=== PATIENT | female | born 1945 | race Caucasian/White ===

== ENCOUNTER → 2019-02-08 | Outpatient (CLI) | payer OTHER | LOC: M.ULTRA 08:47 | DX: I12.9 Hypertensive chronic kidney disease with stage 1 through stage 4 chronic kidney disease, or unspecified chronic kidney disease (principal); N18.3 Chronic kidney disease, stage 3 (moderate) ==

== ENCOUNTER 2019-05-21 13:44 | Inpatient (IN) | payer OTHER ==
[~2019-05-21] VITALS: Ht 162.6 cm; Wt 76.7 kg
[2019-05-21 13:46] VITALS: BP 131/71
[2019-05-21] MEDS ORDERED: CYMBALTA20 MG PO (13:51)
[2019-05-21] MEDS ORDERED: B COMPLEX1 EACH PO (13:51)
[2019-05-21] MEDS ORDERED: SYNTHROID50 MCG PO (13:51)
[2019-05-21] MEDS ORDERED: BLOOD PRESSURE MED (13:51)
[2019-05-21] MEDS ORDERED: IRON159 MG PO (13:52)
[2019-05-21 14:52] LABS: ABSOLUTE BASOPHILS 0.1 thou/uL (0.0-0.2); ABSOLUTE LYMPHOCYTES 0.8 thou/uL (0.8-5.3); ABSOLUTE NEUTROPHILS 11.5 thou/uL (1.6-8.1); BASOPHILS 0.7 %; HEMATOCRIT 36.3 % (37.0-47.0); LYMPHOCYTES 5.8 %; MCH 28.5 pg (26.0-34.0); MCHC 33.2 g/dL (28.0-37.0); MCV 85.8 fL (80.0-100.0); MONOCYTES 14.1 %; MPV 7.6 fl. (7.2-11.1); NUCLEATED RBCS 0 /100WBC; PLATELET COUNT* 237 thou/uL (150-400); POLYS 79.4 %; RBC 4.23 mil/uL (4.20-5.00); RDW-CV 14.3 % (10.5-14.5); WBC 14.5 thou/uL (4.0-11.0)
[2019-05-21 15:05] LABS: CALCIUM 8.8 mg/dL (8.5-10.1); CREATININE 1.4 mg/dL (0.6-1.3); POTASSIUM 3.9 mmol/L (3.5-5.1)
[2019-05-21 15:10] LABS: ALBUMIN 3.2 g/dL (3.4-5.0); TOTAL BILIRUBIN 0.9 mg/dL (<0.1-1.0); TOTAL PROTEIN 7.5 g/dL (6.4-8.2)
[2019-05-21 16:20] LABS: ESR (SEDRATE) 43 mm/hr (0-30)
[2019-05-21] MEDS ORDERED: ATACAND4 MG PO (19:44)
[2019-05-21 20:00] LABS: BF RBC 6359 /mm3; TOTAL CELL COUNT 28024 /mm3
[2019-05-21 20:03] VITALS: BP 127/56
[2019-05-21 20:04] LABS: CLARITY TURBID; TOTAL VOLUME 21 ml
[2019-05-21 20:06] VITALS: BP 128/58
--- NOTE | 2019-05-21 20:06 | NUR ---
PATIENT TRANSFERRED TO ROOM 110, REPORT GIVEN TO SADIE PUGH.
[2019-05-21 20:26] LABS: BF LYMPHOCYTES 4 %; BF MONOCYTES 11 %; BF POLYS 85 %; SOURCE SYNOVIAL
[2019-05-22 04:18] LABS: ABSOLUTE BASOPHILS 0.1 thou/uL (0.0-0.2); ABSOLUTE EOSINOPHILS 0.1 thou/uL (0.0-0.7); ABSOLUTE LYMPHOCYTES 1.5 thou/uL (0.8-5.3); ABSOLUTE MONOCYTES 1.9 thou/uL (0.0-1.2); ABSOLUTE NEUTROPHILS 9.9 thou/uL (1.6-8.1); BASOPHILS 0.4 %; EOSINOPHILS 0.9 %; HEMATOCRIT 36.7 % (37.0-47.0); HEMOGLOBIN 12.3 gm/dL (12.0-15.0); MCH 28.9 pg (26.0-34.0); MCHC 33.4 g/dL (28.0-37.0); MCV 86.4 fL (80.0-100.0); MONOCYTES 13.9 %; MPV 7.7 fl. (7.2-11.1); NUCLEATED RBCS 0 /100WBC; PLATELET COUNT* 243 thou/uL (150-400); POLYS 73.8 %; RBC 4.24 mil/uL (4.20-5.00); RDW-CV 14.1 % (10.5-14.5); WBC 13.5 thou/uL (4.0-11.0)
[2019-05-22 04:36] LABS: ALBUMIN 2.9 g/dL (3.4-5.0); CALCIUM 8.7 mg/dL (8.5-10.1); CREATININE 1.4 mg/dL (0.6-1.3); POTASSIUM 3.3 mmol/L (3.5-5.1); TOTAL BILIRUBIN 0.7 mg/dL (<0.1-1.0); TOTAL PROTEIN 7.4 g/dL (6.4-8.2)
--- NOTE | 2019-05-22 05:04 | NUR ---
ASSUMED CARE OF PT 05/21/19 AT APPROX 1955, PT A&OX4, VSS, PT HAS NOT REQUESTED PAIN MED THIS SHIFT, PT NPO AFTER MIDNIGHT - MAY HAVE SURGERY 05/22, HOURLY ROUNDINGS AND ASSESSMENTS COMPLETED. WILL CONTINUE TO MONITOR.
[2019-05-22 07:30] VITALS: BP 138/71
[2019-05-22 11:30] VITALS: BP 108/54
--- NOTE | 2019-05-22 12:06 | NUR ---
1130 RECEIVED PATIENT PER WHEELCHAIR FROM JOINT/SPINE UNIT. SEE ASSESSMENT. PATIENT ORIENTED TO ROOM AND TELE MONITOR PLACED.
[2019-05-22 12:51] LABS: CALCIUM 8.5 mg/dL (8.5-10.1); CREATININE 1.4 mg/dL (0.6-1.3); MAGNESIUM 1.8 mg/dL (1.8-2.4); POTASSIUM 3.9 mmol/L (3.5-5.1)
--- NOTE | 2019-05-22 15:00 | NUR ---
SEEN BY DR BARILLAS. LEFT LALITHA WRAP OFF OF LEFT KNEE.LIDOCAINE PATCH UNDER LEFT KNEE.
[2019-05-22 16:00] VITALS: BP 122/59
--- NOTE | 2019-05-22 17:09 | NUR ---
PATIENT MAKING SOME PROGRESS TOWARDS GOALS. TRANSFERRED TO TELEMETRY THIS MORNING FOR CLOSER MONITORING SECONDARY TO POSITIVE BLOOD CULTURES. TMAX 99.2. SEEN BY CONSULTS. PAIN CONTROLLED BY SCHEDULED MEDICATION. PLAN IS FOR SURGERY ON LEFT KNEE TOMORROW. FAMILY HAS VISITED.
[2019-05-22 20:00] VITALS: BP 138/61
[2019-05-23] VITALS (10 sets, daily range): BP systolic 122–140; BP diastolic 58–64
--- NOTE | 2019-05-23 05:00 | NUR ---
ASSUMED PT CARE AT 1900. PT AAOX4. 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 HOURLY ROUNDING COMPLETED. PAIN MEDICATION ADMINISTERED THIS SHIFT FOR LEFT KNEE PAIN. SEE EMAR FOR DOCUMENTATION. FEBRILE THIS SHIFT X1. PRN ACETAMINOPHEN ADMINISTERED AND EFFECTIVE. CALL LIGHT WITHIN REACH.
[2019-05-23 05:08] LABS: HEMATOCRIT 30.8 % (37.0-47.0); HEMOGLOBIN 10.5 gm/dL (12.0-15.0); MCH 29.4 pg (26.0-34.0); MCHC 34.1 g/dL (28.0-37.0); MPV 7.4 fl. (7.2-11.1); RBC 3.58 mil/uL (4.20-5.00); RDW-CV 13.9 % (10.5-14.5); WBC 11.9 thou/uL (4.0-11.0)
[2019-05-23 05:18] LABS: CALCIUM 8.1 mg/dL (8.5-10.1); CREATININE 1.2 mg/dL (0.6-1.3); MAGNESIUM 1.8 mg/dL (1.8-2.4); POTASSIUM 3.6 mmol/L (3.5-5.1)
--- NOTE | 2019-05-23 07:49 | NUR ---
Pt resting in bed, appears alert o x 4, denies chest pain, SOB. C/P L knee pain rates 5 on scale of 1-10. NPO for L knee surgery. Orth rounded earlier, anesthesia her to see. States can have water po, up until 10am. Plan on surgery at noon. Spouse is at bedside, NSR on monitor
--- NOTE | 2019-05-23 10:57 | NUR ---
PT LEAVING FLOOR FOR L KNEE SURGERY
--- NOTE | 2019-05-23 11:34 | NUR ---
Pt is A&O. Resides at home with her , normally active and independent. Pt has a walker, crutches and cane at home, but does not currently use any of them. Hx of HH. No hx of skilled. Pt to have surgery today. Goal is home at ms, may need HH and consult received regarding possible need for IVABX. Following.
[2019-05-23 12:06] LABS: BODY FLUID PROTEIN 4.3 g/dL (())
--- NOTE | 2019-05-23 13:57 | 2DMMODE ---
[place] [address] 2 D/M-MODE ECHOCARDIOGRAM Name: YOVANNY ECHAVARRIA Room: [address] IN .R.#: [id number] Admission: 05/21/19 Attend Phys: Kashif Allen, Discharge: Date of : 49 Date of Service: 05/23/19 1356 Report #: [id number] THIS REPORT FOR: //name// APPROVED REPORT Study performed: 05/23/2019 09:39:38 EXAM: Comprehensive 2D, Doppler, and color-flow Echocardiogram Patient Location: Bedside BSA: 1.79 HR: 93 bpm BP: 122/58 mmHg Other Information Study Quality: Good Indications Pre-Op Positive bld cx 2D Dimensions IVSd: 14.42 (7-11mm) LVOT Diam: 17.33 (18-24mm) LVDd: 40.14 mm PWd: 10.96 (7-11mm) Ascending Ao: 35.09 (22-36mm) LVDs: 29.75 (25-40mm) Aortic Root: 22.74 mm Volumes Left Atrial Volume (Systole) LA ESV Index: 19.70 mL/m2 Aortic Valve AoV Peak Ervin.: 3.06 m/s AO Peak Gr.: 37.48 mmHg LVOT Max P.46 mmHg AO Mean Gr.: 19.81 mmHg LVOT Mean P.11 mmHg LVOT Max V: 1.37 m/s AO V2 VTI: 51.94 cm LVOT Mean V: 0.94 m/s JESIKA (VTI): 1.23 cm2 LVOT V1 VTI: 27.17 cm AI Morrow: 2.52 m/s2 AI PHT: 426.24 ms Mitral Valve E/A Ratio: 0.80 MV Decel. Time: 298.36 [place] [address] 2 D/M-MODE ECHOCARDIOGRAM Name: YOVANNY ECHAVARRIA Room: [address] IN ..#: [id number] Admission: 05/21/19 Attend Phys: Kashif Allen, Discharge: Date of : 49 Date of Service: 05/23/19 1356 Report #: [id number] MV E Max Ervin.: 1.10 m/s MV PHT: 86.52 ms MVA (PHT): 2.54 cm2 TDI E/Lateral E': 7.86 E/Medial E': 8.46 Medial E' Ervin.: 0.13 m/s Lateral E' Ervin.: 0.14 m/s Pulmonary Valve PV Peak Ervin.: 1.35 m/s PV Peak Gr.: 7.28 mmHg Tricuspid Valve RAP Estimate: 15.00 mmHg TR Peak Gr.: 48.88 mmHg RVSP: 63.88 mmHg PA Pressure: 63.88 mmHg Left Ventricle The left ventricle is normal size. There is normal LV segmental wall motion. There is normal left ventricular wall thickness. Left ventricular systolic function is normal. The left ventricular ejection fraction is within the normal range. LVEF is 60-65%. Grade I - abnormal relaxation pattern. Right Ventricle The right ventricle is normal size. The right ventricular systolic function is normal. Atria The left atrium size is normal. The right atrium size is normal. Aortic Valve The Aortic valve is sclerotic. Trace aortic regurgitation. Mild aortic stenosis. Mitral Valve The mitral valve is normal in structure. There is no mitral valve regurgitation noted. No evidence of mitral valve stenosis. Tricuspid Valve The tricuspid valve is normal in structure. There is mild tricuspid valve regurgitation noted. estimated pa pressure 55 mm Hg Pulmonic Valve The pulmonary valve is normal in structure. [place] [address] 2 D/M-MODE ECHOCARDIOGRAM Name: JERICHOYOVANNY WOOD Room: [address] IN [facility]#: [id number] Admission: 05/21/19 Attend Phys: Kashif Allen, Discharge: Date of : 49 Date of Service: 05/23/19 1356 Report #: [id number] valvular regurgitation. Great Vessels The aortic root is normal in size. The IVC is dilated. Pericardium There is no pericardial effusion. <Conclusion> LVEF is 60-65%. Mild aortic stenosis. There is mild tricuspid valve regurgitation noted. estimated pa pressure 55 mm Hg <ELECTRONICALLY SIGNED> By: Travis Hunter MD, FACC 05/23/19 1356 1356 1356 Travis Hunter MD, FACC /INF
--- NOTE | 2019-05-23 14:14 | EKG ---
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
--- NOTE | 2019-05-23 15:11 | NUR ---
Per nursing electronics supervisor, plans on transferring to ICU, Report lee to ICU
[2019-05-23 15:23] LABS: BE -5.3 mmol/L (-2 to +3)
[2019-05-23 15:28] LABS: PCO2 53.7 mmHg (35.0-45.0); PO2 180.3 mmHg (75.0-100.0); pH 7.236 (7.340-7.450)
--- NOTE | 2019-05-23 16:15 | EKG ---
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 Program Director: : 1945 Requested By: Musa Pacheco Order Number: [id number] Reyes MD: Travis Hunter Measurements Intervals [place] Rate: 144 P: 191 [place]: 88 QRS: 54 QRSD: 90 T: 22 QT: 362 QTc: 561 Interpretive Statements Sinus or ectopic atrial tachycardia Prolonged QT interval Compared to ECG 05/23/2019 09:37:44 Prolonged QT interval now present Sinus rhythm no longer present Electronically Signed On 05-23-2019 16:14:45 SCIENCE EDUCATION PROFESSOR by Travis Hunter [email or web address] <ELECTRONICALLY SIGNED> By: Travis Hunter MD, [facility] 05/23/19 1614 1450 1450 Travis Hunter MD, [facility] /EPI
--- NOTE | 2019-05-23 17:30 | NUR ---
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
[2019-05-23 17:48] LABS: HEMATOCRIT 26.2 % (37.0-47.0); HEMOGLOBIN 8.8 gm/dL (12.0-15.0); MCH 29.4 pg (26.0-34.0); MCHC 33.6 g/dL (28.0-37.0); MCV 87.5 fL (80.0-100.0); RBC 2.99 mil/uL (4.20-5.00); RDW-CV 13.7 % (10.5-14.5); WBC 14.2 thou/uL (4.0-11.0)
[2019-05-23 17:56] LABS: CREATININE 1.2 mg/dL (0.6-1.3); MAGNESIUM 1.7 mg/dL (1.8-2.4); POTASSIUM 4.6 mmol/L (3.5-5.1)
[2019-05-23 18:04] LABS: BE -5.9 mmol/L (-2 to +3); PCO2 45.4 mmHg (35.0-45.0)
[2019-05-23 18:08] LABS: PO2 134.9 mmHg (75.0-100.0); pH 7.276 (7.340-7.450)
[2019-05-24] VITALS (9 sets, daily range): BP systolic 103–130; BP diastolic 44–76
[2019-05-24 01:01] LABS: HEMATOCRIT 22.4 % (37.0-47.0); HEMOGLOBIN 7.7 gm/dL (12.0-15.0); MCH 29.7 pg (26.0-34.0); MCHC 34.4 g/dL (28.0-37.0); MCV 86.6 fL (80.0-100.0); MPV 7.6 fl. (7.2-11.1); RBC 2.58 mil/uL (4.20-5.00); WBC 10.9 thou/uL (4.0-11.0)
[2019-05-24 01:05] LABS: BE -2.4 mmol/L (-2 to +3); PCO2 VENOUS 58.5 mmHg (41.0-51.0); PO2 VENOUS 42.3 mmHg (35.0-45.0)
[2019-05-24 01:28] LABS: ALBUMIN 1.8 g/dL (3.4-5.0); CALCIUM 7.8 mg/dL (8.5-10.1); CREATININE 1.3 mg/dL (0.6-1.3); MAGNESIUM 1.8 mg/dL (1.8-2.4); POTASSIUM 4.8 mmol/L (3.5-5.1); TOTAL BILIRUBIN 0.5 mg/dL (<0.1-1.0); TOTAL PROTEIN 5.5 g/dL (6.4-8.2)
[2019-05-24 04:37] LABS: BE 15.8 mmol/L (-2 to +3); PO2 68.9 mmHg (75.0-100.0); pH 7.463 (7.340-7.450)
[2019-05-24 04:42] LABS: PCO2 60.3 mmHg (35.0-45.0)
--- NOTE | 2019-05-24 06:44 | NUR ---
ASSESSMENTS CHARTED. PULMONARY VISIT AT BEDSIDE THIS SHIFT. BLOOD GASES DRAWN THIS SHIFT. CRITICAL RESULTS RETURNED. ATTEMPTED TO REACH PULMONARY WITH RESULTS WITH NO SUCCESS. MESSAGE SENT TO HOSPITALIST WITH RESULTS. PATIENT HAS SLEPT ON THE BIPAP FOR THE MAJORITY OF THE SHIFT. FAMILY AT BEDSIDE AT START OF SHIFT. ORTHO SURGERY VISITED PATIENT NEAR END OF THE SHIFT. IMMOBILIZER IN PLACE OVER LEFT LOWER EXTREMITY. NO SIGNIFICANT EVENTS THIS SHIFT. TM
--- NOTE | 2019-05-24 09:12 | OP ---
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 POSTOPERATIVE DIAGNOSIS: Left knee prosthetic joint infection. PROCEDURE PERFORMED: Explant of left total knee arthroplasty components with insertion of articulating antibiotic spacer. SURGEON: Richie Abdi DO PROJECT STRUCTURAL ENGINEER: Pepito Melendez DO, ____ ANESTHESIA: General. ESTIMATED BLOOD LOSS: 200 mL. ANTIBIOTICS: The patient is receiving scheduled antibiotics consisting of vancomycin and Ceftriaxone. SPECIMENS: Tissue sent for tissue culture. COMPLICATIONS: None. CONDITION: The patient is stable to PACU. INDICATIONS FOR PROCEDURE: The patient is a pleasant 73-year-old female who presented to [facility] Emergency [facility] for evaluation of her left knee. She had acute onset left knee pain with difficulty with motion and weightbearing. She has a history of a previous left total knee arthroplasty [place] [address] Dhaval Romero. She had been doing very well up until 05/21. She had no known injury. She denies any recent illness or dental work. Upon exam, she was noted to have elevated inflammatory markers including CRP of 19.3, ESR 43. White blood cell count 14.5. She was noted to have a left knee effusion. An aspiration of the left knee was then performed with synovial fluid analysis. Synovial fluid analysis showed 28,000 total cell count with 85% PMNs. She was febrile and blood cultures did show gram-positive cocci. Decision was made to proceed with explant of her left total knee arthroplasty [place] [address] OPERATIVE REPORT Name: YOVANNY ECHAVARRIA Room: [address] IN [facility]#: [id number] Admission: 05/21/19 Attend Phys: Kashif Allen MD Discharge: Date of : 49 Report #: [id number] antibiotic spacer with a diagnosis of a prosthetic joint infection. The risks, benefits, alternatives and complications were discussed with the patient and she did wish to proceed. DESCRIPTION OF PROCEDURE: The patient was seen and examined in the preoperative holding area. The correct operative extremity was marked. Written consent was obtained for the procedure. Again, the risks, benefits, alternatives and complications were discussed with the patient and she wished to proceed. The patient was then transferred to the operating room and placed supine on the operating table. She was given the benefit of general anesthesia. A well-padded tourniquet placed to the left thigh. The left lower extremity was then prepped and draped in the usual sterile fashion. Timeout was performed to verify the correct patient, procedure and operative extremity and all were in agreement. Procedure then began utilizing an incision directly overlying the prior total knee incision. Sharp dissection was carried down to the level of the joint capsule. A second knife was then used to perform a medial parapatellar arthrotomy. There was purulence noted upon making the arthrotomy. Sharp dissection was carried down to the joint. The patella was everted. There was noted to be a fracture of the patella and all poly patellar component. The patellar component was then removed. The polyethylene tibial bearing was then removed. Attention was turned to the femur and utilizing a combination of reciprocating saw and flexible osteotome, the femoral component was excellent. The tibial component was then explanted a similar manner. All excess cement was then removed using a combination of rongeurs and curettes. The knee was then thoroughly irrigated with pulsatile lavage. The femur and tibia were then incised. Articulating spacers were then made corresponding sizes utilizing premade molds. The femoral and tibial canals were then opened with the hand reamers. Cement intramedullary cement plugs were then performed and allowed to harden. The intramedullary cement plugs were then inserted followed by the femoral and tibial articulating antibiotic spacers. These were cemented into position. The knee was taken into extension and held while the cement hardened. All excess cement was removed. After cement hardening, the knee was taken through range of motion and noted to have good stability throughout range of motion. The capsule was closed with a #1 PDS in an interrupted [id number] fashion. Subcutaneous layer was irrigated and then closed with 2-0 Monocryl in simple interrupted and inverted fashion. [place] were used on the skin. Sterile Mepilex dressing was then applied. The patient was then placed in a 3D hinged knee brace allowing range of motion 0-100. The patient was then awakened from anesthesia and transferred to the PACU in stable condition. The patient tolerated the procedure well. There were no complications. <ELECTRONICALLY SIGNED> By: Richie Abdi DO 05/24/19 0912 1425 [id number] Abdi DO /judi
[2019-05-24 09:35] LABS: HEMATOCRIT 20.5 % (37.0-47.0); MCH 29.6 pg (26.0-34.0); MCHC 34.2 g/dL (28.0-37.0); MCV 86.5 fL (80.0-100.0); NUCLEATED RBCS 0 /100WBC; PLATELET COUNT* 183 thou/uL (150-400); RBC 2.38 mil/uL (4.20-5.00); RDW-CV 13.8 % (10.5-14.5); WBC 9.8 thou/uL (4.0-11.0)
[2019-05-24 09:37] LABS: CALCIUM 7.3 mg/dL (8.5-10.1); CREATININE 1.2 mg/dL (0.6-1.3)
[2019-05-24 10:11] LABS: ABSOLUTE LYMPHOCYTES 0.8 thou/uL (0.8-5.3); ABSOLUTE MONOCYTES 0.2 thou/uL (0.0-1.2); ABSOLUTE NEUTROPHILS 8.8 thou/uL (1.6-8.1); PLATELET ESTIMATE ADEQUATE
--- NOTE | 2019-05-24 10:36 | NUR ---
ICU ROUNDS: TRANSFERRED TO ICU AFTER SURGERY YESTERDAY DUE TO TACHYCARDIA AND PERIODS OF APNEA. OFF BIPAP THIS AM. ORDERS TO WEAR AT NIGHT. SR ON MONITOR. AWAITING CULTURE RESULTS TO DETERMINE ANTIBIOTICS FOR DISCHARGE. CM WILL FOLLOW.
--- NOTE | 2019-05-24 13:56 | CON ---
[address] [address] CONSULTATION Name: JERICHOYOVANNY WOOD Room: [address] IN .R.#: [id number] Admission: 05/21/19 Attend Phys: Kashif Allen MD Discharge: Date of : 49 Report #: [id number] THIS REPORT FOR: //name// CC: Travis Allen DATE OF SERVICE: 05/23/2019 HISTORY OF PRESENT ILLNESS: The patient is a 73-year-old white female who I was asked to see in the hospital today after she was noted to be tachycardic. The history is obtained from the chart as well as the who is present. There are no old records available. The patient stays fairly active. She came to the Emergency Room 2 days ago complaining of knee pain. She is felt to have a septic joint. She has had previous knee replacement. Today, she went to the Emergency Room and had explantation of the left knee arthroplasty with placement of a spacer. In recovery, the patient noted to be tachycardic. I was asked to see her for further evaluation and treatment. According to the , she has no history of chest pain, myocardial infarction, dyspnea on exertion, palpitations, syncope or peripheral edema. PAST MEDICAL HISTORY: Otherwise significant for tonsillectomy, hysterectomy and hypertension. MEDICATIONS: On admission included Synthroid, Atacand and Cymbalta. ALLERGIES: She has no known drug allergies. FAMILY HISTORY: Significant for diabetes. SOCIAL HISTORY: She is . She and her live in [place]. No smoking or alcohol abuse. REVIEW OF SYSTEMS: No history of stroke. She has had some short-term memory loss. No history of asthma, liver disease. She has some chronic kidney disease. No cancer. No psychiatric illness. No chronic skin condition. PHYSICAL EXAMINATION: GENERAL: Revealed an elderly female lying in recovery room with oxygen in place. She was arousable. VITAL SIGNS: She had a blood pressure of 130/60, pulse is 100. She is febrile to 102. HEENT: She is anicteric. Conjunctivae pink. Mucous membranes moist. NECK: Veins do not appear distended. CHEST: Clear to auscultation. CARDIOVASCULAR: Regular, tachycardia, grade 2 [place] [address] CONSULTATION Name: JERICHOYOVANNY WOOD Room: [address] IN [facility]#: [id number] Admission: 05/21/19 Attend Phys: Kashif Allen MD Discharge: Date of : 49 Report #: [id number] ABDOMEN: Soft. EXTREMITIES: Had no edema. SKIN: Warm and dry. NEUROLOGIC: Nonfocal. ECG on admission showed a sinus rhythm. Today in recovery, she appeared to have a narrow complex tachycardia suggestive of an atrial tachycardia. She had an echocardiogram today that showed normal left ventricular function with mild aortic stenosis, mild tricuspid regurgitation and estimated PA pressure 55 mmHg. LABORATORY DATA: Her lab work, she had white blood cell count 135, potassium 3.6, creatinine 1.2. Liver function studies were normal. White blood cell count 14.5, hemoglobin 12. IMPRESSION AND RECOMMENDATIONS: 1. Atrial tachycardia. If persistent, I would consider a beta antonio. 2. Status post infected prosthesis. 3. Bacteremia. 4. Hypertension. I would hold blood pressure medications at this time. 5. Anemia. 6. History of chronic kidney disease. 7. Mild aortic stenosis. <ELECTRONICALLY SIGNED> By: Travis Hunter MD, FACC 05/24/19 1356 1534 [id number] Hunter MD, FACC /nt
--- NOTE | 2019-05-24 14:17 | EKG ---
[place] [address] ELECTROCARDIOGRAM REPORT Name: YOVANNY ECHAVARRIA Room: [address] ADM IN .R.#: [id number] Admission: 05/21/19 Attend Phys: Kashif Allen MD Discharge: Date of : 49 Report #: [id number] THIS REPORT FOR: //name// [facility] Test Date: 2019-05-24 Test Time: 11:33:42 Pat Name: YOVANNY ECHAVARRIA Department: Room: [facility] Gender: F Product Marketing Programs Manager: : 1945 Requested By: Travis Hunter Order Number: [id number] Reyes MD: Travis Hunter Measurements Intervals [place] Rate: 69 P: 37 GA: 155 QRS: 48 QRSD: 85 T: 9 QT: 359 QTc: 385 Interpretive Statements Sinus rhythm Abnormal R-wave progression, early transition Compared to ECG 05/23/2019 14:50:28 atrial tachycardia no longer noted Electronically Signed On 05-24-2019 14:17:05 PECAN CLEANER by Travis Hunter [email or web address] <ELECTRONICALLY SIGNED> By: Travis Hunter MD, [facility] 05/24/19 1417 1133 1133 Travis Hunter MD, FAC /EPI
[2019-05-24 19:54] LABS: HEMATOCRIT 18.6 % (37.0-47.0); HEMOGLOBIN 6.1 gm/dL (12.0-15.0)
[2019-05-24 20:39] LABS: SOURCE SYNOVIAL
--- NOTE | 2019-05-24 21:27 | NUR ---
ASSUMED CARE AT 1900. LAB RESULTS FROM 0855 BLOOD DRAW SHOWED HEMOGLOBIN AT 7.0. NO RECORD OF ANY NURSING INTERVENTIONS OR ACKNOWLEDGMENT BY PHYSICIANS. ORDERED STAT H AND H REDRAW TO CHECK LEVELS, CRITICALLY LOW RESULTS CAME BACK. SPOKE WITH DR. VALENCIA AND RECEIVED ORDERS TO BEGIN BLOOD TRANSFUSION TO KEEP HGB GREATER THAN 7.0. AWAITING BLOOD BANK TO READY UNIT OF BLOOD. [facility].
[2019-05-25] VITALS (11 sets, daily range): BP systolic 114–149; BP diastolic 48–80
[2019-05-25 01:09] LABS: ABSOLUTE LYMPHOCYTES 0.7 thou/uL (0.8-5.3); ABSOLUTE MONOCYTES 1.3 thou/uL (0.0-1.2); ABSOLUTE NEUTROPHILS 8.7 thou/uL (1.6-8.1); BASOPHILS 0.2 %; HEMATOCRIT 20.3 % (37.0-47.0); HEMOGLOBIN 7.1 gm/dL (12.0-15.0); LYMPHOCYTES 6.4 %; MCH 29.9 pg (26.0-34.0); MCHC 34.7 g/dL (28.0-37.0); MCV 86.2 fL (80.0-100.0); MONOCYTES 12.5 %; MPV 7.6 fl. (7.2-11.1); NUCLEATED RBCS 0 /100WBC; PLATELET COUNT* 182 thou/uL (150-400); POLYS 80.9 %; RBC 2.36 mil/uL (4.20-5.00); RDW-CV 13.9 % (10.5-14.5); WBC 10.8 thou/uL (4.0-11.0)
[2019-05-25 04:37] LABS: MCH 29.3 pg (26.0-34.0); MCHC 34.1 g/dL (28.0-37.0); MCV 85.9 fL (80.0-100.0); MPV 7.8 fl. (7.2-11.1); RBC 2.29 mil/uL (4.20-5.00); RDW-CV 13.6 % (10.5-14.5); WBC 11.5 thou/uL (4.0-11.0)
[2019-05-25 05:01] LABS: ALBUMIN 1.9 g/dL (3.4-5.0); CALCIUM 7.6 mg/dL (8.5-10.1); CREATININE 1.1 mg/dL (0.6-1.3); MAGNESIUM 2.1 mg/dL (1.8-2.4); POTASSIUM 4.1 mmol/L (3.5-5.1); TOTAL BILIRUBIN 0.3 mg/dL (<0.1-1.0); TOTAL PROTEIN 5.3 g/dL (6.4-8.2)
[2019-05-25 05:56] LABS: HEMATOCRIT 19.7 % (37.0-47.0); HEMOGLOBIN 6.7 gm/dL (12.0-15.0)
--- NOTE | 2019-05-25 07:54 | NUR ---
ASSESSMENTS CHARTED. PATIENT'S HEMOGLOBIN CONTINUES TO DROP AND HAS REQUIRED A SECOND BLOOD TRANSFUSION. PATIENT DID NOT KEEP BIPAP MASK ON FOR MORE THAN AN HOUR DURING THE SHIFT LAST NIGHT. PATIENT DID ATTMEPT TO CLIMB OUT OF BED ON HER OWN ONCE DURING THE SHIFT. BED ALARMS ON AND PATIENT EDUCATED ON CALLING FOR NURSING STAFF IF SHE NEEDS TO GET UP. PATIENT DID GET UP TO THE COMMODE 3 TIMES LAST NIGHT TO VOID. INFECTIOUS DISEASE AND ORTHO SURG SAW PATIENT THIS AM. FAMILY AT BEDSIDE LAST NIGHT AND WILL RETURN IN AM. ROXANN
[2019-05-25 13:38] LABS: HEMATOCRIT 25.9 % (37.0-47.0)
[2019-05-25 13:44] LABS: HEMOGLOBIN 8.8 gm/dL (12.0-15.0)
--- NOTE | 2019-05-25 17:57 | NUR ---
PT A&O x4. VSS. I UNIT OF BLOOD TRANSFUSED. PT WALKED THE HALLWAY COUPLE OF TIMES WITH THE HELP OF WALKER. TOLERATING DIET. GOOD OUTPUT. HAD A SMALL BM. PAIN MANAGED BY SCHEDULED TRAMADOL. PT HAD A SELF CARE BATH.
[2019-05-26] VITALS: BP 149/72
[2019-05-26 04:00] VITALS: BP 133/69
[2019-05-26] MEDS ORDERED: SERTRALINE HCL100 MG PO (07:23)
[2019-05-26] MEDS ORDERED: OCUVITE TABLET1 EAC1 PO (07:23)
[2019-05-26] MEDS ORDERED: LOPRESSOR50 MG PO (07:24)
[2019-05-26] MEDS ORDERED: PRADAXA150 MG PO (07:25)
[2019-05-26] MEDS ORDERED: VITAMIN D32000 UNIT PO (07:27)
[2019-05-26] MEDS ORDERED: VITAMIN B-121000 MC2 PO (07:28)
[2019-05-26] MEDS ORDERED: NORVASC 2.5 MG2.5 M1 PO (07:29)
[2019-05-26] MEDS ORDERED: LIPITOR20 MG PO (07:31)
[2019-05-26] MEDS ORDERED: ASA81BEC PO (07:31)
[2019-05-26] MEDS ORDERED: FISH OIL 1,0001 EAC9 PO (07:32)
[2019-05-26] MEDS ORDERED: METFORMIN HCL500 M3 PO (07:33)
[2019-05-26] MEDS ORDERED: FLONASE 0.05%50 MCG NARES (07:35)
[2019-05-26] MEDS ORDERED: BENICAR20 MG PO (07:36)
[2019-05-26] MEDS ORDERED: OYSTERCAL-D 501 EACH PO (07:37)
[2019-05-26] MEDS ORDERED: OMEPRAZOLE 20 M20 M1 PO (07:37)
--- NOTE | 2019-05-26 07:41 | NUR ---
PATIENT PROGRESSING TOWARDS GOALS: PAIN MANAGED WITH MEDICATION PER MAR AND IMMOBILATION OF LEFT LEG. PATIENT TRANSFERRED FROM ICU AT APPROX 0115. PATIENT HAS BEEN RESTING SINCE TRANSFER. REPORT GIVEN TO LEXY JONES.
[2019-05-26 08:00] VITALS: BP 166/73
[2019-05-26 08:46] LABS: HEMATOCRIT 23.4 % (37.0-47.0)
[2019-05-26 12:00] VITALS: BP 147/69
--- NOTE | 2019-05-26 12:57 | CON ---
[address] [address] CONSULTATION Name: YOVANNY ECHAVARRIA ISRAEL Room: [address] IN .R.#: [id number] Admission: 05/21/19 Attend Phys: Kashif Allen MD Discharge: Date of : 49 Report #: [id number] THIS REPORT FOR: //name// CC: Travis Allen DATE OF SERVICE: 05/22/2019 CONSULTATION: Infectious Diseases. HISTORY OF PRESENT ILLNESS: The patient is a 73-year-old white female who is admitted to the hospital for septic total knee arthroplasty. The patient had a routine arthroplasty done by Dr. Romero approximately 7 or so years ago. She did well with really no postoperative problems. The patient first noted about 2 days ago prior to the admission that the knee was warm, painful and stiff. The patient had no new activity. She had no trauma. She had no dental work since last February. No skin or wound issues. The pain became progressively worse. The patient presented to the ER where arthrocentesis demonstrated a brennan pyarthrosis. Blood cultures x 2 are growing gram-positive cocci. In this setting, Infectious Disease consultation was requested. PAST MEDICAL HISTORY: Significant for hypothyroidism and depression. PAST SURGICAL HISTORY: Includes a knee replacement, a partial hysterectomy and ear surgery. ALLERGIES: The patient has no drug allergies. FAMILY HISTORY: Noncontributory. SOCIAL HISTORY: The patient is and lives with her . REVIEW OF SYSTEMS: GENERAL: The patient is not aware of fevers, chills or sweats. She had a fever this morning. She did notice some chills, but had not noticed them before. The patient denies any weakness, malaise. HEENT: The patient denies any headache, sinus congestion, sore throat, trouble swallowing. RESPIRATORY: The patient denies cough, chest pain, shortness of breath. CARDIOVASCULAR: The patient denies any angina, syncope, palpitation. GASTROINTESTINAL: The patient denies nausea, vomiting, diarrhea, constipation. GENITOURINARY: The patient denies urinary complaints. EXTREMITIES: The patient has no pain in her extremities except for the left knee. PHYSICAL EXAMINATION: [place] [address] CONSULTATION Name: YOVANNY ECHAVARRIA Room: [address]#: [id number] Admission: 05/21/19 Attend Phys: Kashif Allen MD Discharge: Date of : 49 Report #: [id number] GENERAL: The patient appears her stated age, alert, oriented, comfortable, not in any distress. VITAL SIGNS: Normal, except for a single temperature spike of 102.8 early this morning. SKIN: Shows no rash, no lesion. ENT: Negative. NECK: Supple. No adenopathy. HEART: Sounds normal. LUNGS: Clear. ABDOMEN: Belly is soft, not tender. EXTREMITIES: Unremarkable except for left knee. There is a well-healed midline incision over the left patella. The knee is warm and slightly puffy. The patient has a lot of pain trying to flex the knee and has maybe 20 degrees of flexion before pain limits her. Distal lower extremities are unremarkable. LABORATORY DATA: The white count is 13.5, hemoglobin 12.3, platelet 243,000. Electrolytes normal. BUN 23, creatinine 1.4. Liver function tests are normal. AST elevated at 43. ALT very high at 194. Arthrocentesis showed purulent synovial fluid from the left knee, 28,000 white cells, 85% polys were noted. Cultures of synovial fluid are pending. Blood cultures x 2 from last night are growing gram-positive cocci. IMPRESSION: Septic arthritis, probably due to staph or strep. The patient is currently on vancomycin and Rocephin. Vancomycin would cover staph including MRSA as well as strep. We do not need any additional Rocephin. If the organism proves to be sensitive staph or strep, we could maybe use Rocephin as a single agent. I would like to repeat blood cultures x 2. The patient has an elevated temperature. I would do 2 blood cultures routine tomorrow morning. When the blood cultures are negative, we can consider placing a PICC line. The patient will have a surgical debridement either explantation or washout followed by intensive antibiotic therapy based on culture results. I will ask social science analyst to come and involve to arrange for outpatient antibiotic therapy after the patient is stable postoperatively. I discussed with the patient strategy of a staged revision versus a washout with long-term antibiotics. She does have significant arthritis, was hoping to have a replacement on her right knee. This may push us towards the more aggressive stage revision so that we can be done with an infection sooner to proceed with further indicated surgery. If we just do a washout with hardware left in place, the patient will probably need to be on a prolonged course of suppressive antibiotics, which may delay right knee replacement by as much as a year. For now, leave the decision on ____ optimal management to Dr. Mccormick who will return [address] [address] CONSULTATION Name: YOVANNY ECHAVARRIA Room: [address] IN M.R.#: [id number] Admission: 05/21/19 Attend Phys: Kashif Allen MD Discharge: Date of : 49 Report #: [id number] tomorrow and the orthopedic surgeon. I will continue vancomycin and supportive therapy. <ELECTRONICALLY SIGNED> By: Musa Yee MD 05/26/19 1257 1443 [id number] Yee MD /nt
[2019-05-26 13:23] LABS: ABSOLUTE BASOPHILS 0.1 thou/uL (0.0-0.2); ABSOLUTE EOSINOPHILS 0.3 thou/uL (0.0-0.7); ABSOLUTE LYMPHOCYTES 1.4 thou/uL (0.8-5.3); ABSOLUTE NEUTROPHILS 6.1 thou/uL (1.6-8.1); BASOPHILS 0.8 %; EOSINOPHILS 3.3 %; HEMATOCRIT 25.9 % (37.0-47.0); HEMOGLOBIN 8.7 gm/dL (12.0-15.0); LYMPHOCYTES 15.4 %; MCH 28.8 pg (26.0-34.0); MCHC 33.8 g/dL (28.0-37.0); MCV 85.1 fL (80.0-100.0); MONOCYTES 11.2 %; NUCLEATED RBCS 0 /100WBC; PLATELET COUNT* 240 thou/uL (150-400); POLYS 69.3 %; RBC 3.04 mil/uL (4.20-5.00); RDW-CV 14.6 % (10.5-14.5); WBC 8.8 thou/uL (4.0-11.0)
[2019-05-26 13:46] LABS: ALBUMIN 2.3 g/dL (3.4-5.0); CALCIUM 7.9 mg/dL (8.5-10.1); CREATININE 1.1 mg/dL (0.6-1.3); POTASSIUM 3.4 mmol/L (3.5-5.1); TOTAL BILIRUBIN 0.5 mg/dL (<0.1-1.0); TOTAL PROTEIN 6.2 g/dL (6.4-8.2)
[2019-05-26 16:00] VITALS: BP 150/68
--- NOTE | 2019-05-26 17:17 | NUR ---
PATIENT RESTING IN CHAIR. PATIENT IS UP STANDBY ASSIST WITH WALKER. PATIENT HAS HAD COMPLAINTS OF PAIN TO LEFT KNEE TREATED ADEQUATELY WITH MEDICATION. PATIENT WORKED WITH PHYSICAL THERAPY TODAY. PATIENT DENIES ANY NEEDS AT THIS TIME. CALL LIGHT WITHIN REACH.
[2019-05-26 20:00] VITALS: BP 140/60
[2019-05-27 00:49] VITALS: BP 154/67
[2019-05-27 04:37] VITALS: BP 153/60
--- NOTE | 2019-05-27 05:27 | NUR ---
PT CARE ASSUMED AT 1930. SAT MAINTAINED IN RA. ALERT AND ORIENTED X4. DENIES SOB. CALL LIGHT WITHIN REACH AND BED IN LOW POSITION. HOURLY ROUNDING DONE FOR PT SAFETY
[2019-05-27 08:23] VITALS: BP 125/68
--- NOTE | 2019-05-27 09:54 | NUR ---
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 ORDERED, TRACING SR- UPON ASSESSMENT PT NOTED TO BE RESTING IN BED- PT A&O X4- CONTINENT OF B/B- SBA WITH TRANSFERS FOR SAFETY-LCTA, RESP EVEN AND UN-LABORED- VSS, O2 SAT 97% ON RA- ABD SOFT/ROUND/NON-TENDER, LAST BM REPORTED X 7 DAYS AGO, PT REPORTS PATTERN TO BE NORMAL FOR HER AND TO BE PASSING GAS- IV NOTED TO LEFT FA INTACT AND SL- SINGLE LUMEN PICC PLACED THIS AM PRESCIBED- LLE WITH LALITHA WRAP IN PLACE AND IMMOBILIZER INDICATED- GOOD PO INTAKE NOTED THIS AM WITH BREAKFAST- PT DENIES ANY C/O PAIN/DISCOMFORT AT THIS TIME- CALL LIGHT AND PERSONAL BELONGINGS WITH IN REACH- PT MAKES NEEDS KNOWN- ALL NEEDS MET AT THIS TIME-WCTM
[2019-05-27 11:45] VITALS: BP 170/70
[2019-05-27 12:05] VITALS: BP 170/70
[2019-05-27] MEDS ORDERED: SLEEP AID50 MG PO (12:37)
[2019-05-27] MEDS ORDERED: LORCET 5-325 M1 EACH PO (12:39)
[2019-05-27] MEDS ORDERED: MYLANTA MAXIMU355 ML PO (12:40)
[2019-05-27] MEDS ORDERED: PERCOCET 5-3251 EACH PO (12:42)
[2019-05-27] MEDS ORDERED: LEVO-T50 MCG PO (12:46)
[2019-05-27] MEDS ORDERED: CEFAZ1 ADV IV (12:47)
[2019-05-27] MEDS ORDERED: TYLENOL325 M1 PO (12:51)
[2019-05-27] MEDS ORDERED: ELIQUIS2.5 MG PO (12:52)
--- NOTE | 2019-05-27 13:30 | NUR ---
CONTINUE TO FOLLOW, CALLED AND FAXED REFERRAL TO CHECK IV ABX BENEFITS WITH [facility], FOR THE NAFCILLIN DOSE, PT WOULD HAVE A $331/7 DAYS COPAY. DISCUSSED WITH DR SANDERS, CHANGED MED TO CEFAZOLIN 2GM IV Q8HR. PER ADRYAN/[facility], COST IF $68.54/7 DAYS COPAY. PT AND SPOUSE IN AGREEMENT WITH THAT. PT HAD PICC LINE PLACED THIS AM. DISCUSSED HH, CHOSE [facility], CALLED AND PER GARETH, THEY DECLINED D/T 'BUSY'. CALLED TO OTHERS IN PT'S NETWORK, ANA AT HOME UNABLE TO SEE PT TONIGHT FOR IV ABX. CALL TO [facility], PER CARLOS, THEY CAN ACCEPT AND SEE PT TONIGHT. PT IN AGREEMENT WITH THAT. KATHERINE FROM [facility] HERE DID AN IV INSTRUCTION WITH PT AND SPOUSE, PER KATHERINE, DID WELL. PT HAD QUESTIONS ABOUT HER KNEE BRACE, ASKED RN TO CLARIFY. FAXED ALL ORDERS FOR DC TO [facility]. PT HAS WALKER, TO RETURN HOME WITH SPOUSE
[2019-05-27] MEDS ORDERED: CYMBALTA60 MG PO (15:58)
[2019-05-27] MEDS ORDERED: CANDESARTAN PO (16:00)
== END 2019-05-27 16:11 | disposition home health service (06) | DRG 466 ==
LOC: M.ERS 13:44 → M.2W 18:31 → M.TBA-ER 18:31 → M.ORTHSURG 20:38 → M.2W 05-22 11:46 → M.ICU 05-23 15:50 → M.2W 05-26 01:15
PROVIDERS: Anesthesiology; Family Medicine; Internal Medicine; Internal Medicine Pulmonary Disease; Nurse Practitioner Family; Orthopaedic Surgery; ADMIT Internal Medicine
PROC: 0SRD0EZ Replacement of Left Knee Joint with Articulating Spacer, Open Approach (ICD-10-PCS; principal; 2019-05-23)
PROC: 0SPD0JZ Removal of Synthetic Substitute from Left Knee Joint, Open Approach (ICD-10-PCS; principal; 2019-05-23)
PROC: 30233N1 Transfusion of Nonautologous Red Blood Cells into Peripheral Vein, Percutaneous Approach (ICD-10-PCS; 2019-05-24)
DX: T84.54XA Infection and inflammatory reaction due to internal left knee prosthesis, initial encounter (principal); A41.2 Sepsis due to unspecified staphylococcus; R09.2 Respiratory arrest; N17.9 Acute kidney failure, unspecified; M00.9 Pyogenic arthritis, unspecified; I47.1 Supraventricular tachycardia; I10 Essential (primary) hypertension; E03.9 Hypothyroidism, unspecified; D72.829 Elevated white blood cell count, unspecified; F32.9 Major depressive disorder, single episode, unspecified; D64.9 Anemia, unspecified; I35.0 Nonrheumatic aortic (valve) stenosis; Z90.710 Acquired absence of both cervix and uterus; Z83.3 Family history of diabetes mellitus; Z79.899 Other long term (current) drug therapy

== ENCOUNTER 2019-11-18 06:51 | Observation (INO) | payer MEDICARE ==
[2019-11-14 10:44] LABS: ABSOLUTE NEUTROPHILS 3.3 thou/uL (1.6-8.1); HEMOGLOBIN 12.9 gm/dL (12.0-15.0); RDW-CV 14.7 % (10.5-14.5)
[2019-11-14 10:46] LABS: ABSOLUTE BASOPHILS 0.1 thou/uL (0.0-0.2); ABSOLUTE EOSINOPHILS 0.2 thou/uL (0.0-0.7); ABSOLUTE LYMPHOCYTES 1.4 thou/uL (0.8-5.3); ABSOLUTE MONOCYTES 0.5 thou/uL (0.0-1.2); BASOPHILS 1.5 %; EOSINOPHILS 3.1 %; HEMATOCRIT 38.3 % (37.0-47.0); LYMPHOCYTES 26.2 %; MCH 29.2 pg (26.0-34.0); MCHC 33.8 g/dL (28.0-37.0); MCV 86.4 fL (80.0-100.0); MONOCYTES 8.8 %; MPV 7.3 fl. (7.2-11.1); NUCLEATED RBCS 0 /100WBC; PLATELET COUNT* 306 thou/uL (150-400); POLYS 60.4 %; RBC 4.43 mil/uL (4.20-5.00); WBC 5.5 thou/uL (4.0-11.0)
[2019-11-14 10:55] LABS: ALBUMIN 3.6 g/dL (3.4-5.0); APTT 24.9 Seconds (25.0-31.3); CALCIUM 8.6 mg/dL (8.5-10.1); CREATININE 1.4 mg/dL (0.6-1.3); POTASSIUM 4.2 mmol/L (3.5-5.1); PROTIME 10.3 Seconds (9.20-11.50); TOTAL BILIRUBIN 0.4 mg/dL (<0.1-1.0)
[2019-11-14 11:44] LABS: ESR (SEDRATE) 40 mm/hr (0-30)
[~2019-11-18] VITALS: Ht 162.6 cm; Wt 65.8 kg
--- NOTE | ~2019-11-18 | OP ---
[facility] [place] [address] OPERATIVE REPORT Name: YOVANNY ECHAVARRIA Room: [address] IN M.R.#: [id number] Admission: 11/18/19 Attend Phys: Stu Lopez Discharge: Date of : 49 Report #: [id number] THIS REPORT FOR: //name// cc: Travis Holbrook MD, David L. MD ~ THIS REPORT FOR: //name// CC: Travis Robert DICTATED BY: Anthony Baker DO DATE OF SERVICE: 11/18/2019 PREOPERATIVE DIAGNOSIS: Left knee periprosthetic joint infection, status post explant with insertion of antibiotic spacer. POSTOPERATIVE DIAGNOSIS: Left knee periprosthetic joint infection, status post explant with insertion of antibiotic spacer. PROCEDURE PERFORMED: Left revision total knee arthroplasty with removal of antibiotic spacer. SURGEON: Richie Abdi DO DRAIN TILER: Anthony Baker DO SECOND AEROSPACE ENGINEER OFFICER ARMAMENT: Rinku Alfred DO ANESTHESIA: General. ESTIMATED BLOOD LOSS: 200 mL. COMPLICATIONS: None. CONDITION: Stable to PACU. SPECIMENS: Synovium was sent for frozen section for PMNs. FINDINGS: Less than 5 PMNs per high power field. ORTHOPEDIC IMPLANTS: Biomet 360 revision total knee system was utilized with the following components: 1. A size 60 femoral component. 2. A 5 mm augments of the distal femur medially and laterally. [facility] [address] OPERATIVE REPORT Name: YOVANNY ECHAVARRIA Room: [address] IN [facility]#: [id number] Admission: 11/18/19 Attend Phys: Stu Lopez Discharge: Date of : 49 Report #: [id number] 3. An 80 mm x 17 mm femoral stem. 4. Size 71 mm tibial tray. 5. Size 13 x 120 mm tibial stem. 6. 5 mm augments medially and laterally, tibial. 7. 18 mm posterior stabilized polyethylene insert. INDICATIONS FOR PROCEDURE: The patient is a 74-year-old female who unfortunately developed a left knee periprosthetic infection several years after undergoing left total knee arthroplasty. Approximately 3 months ago, she underwent explant of the total knee with insertion of an antibiotic spacer. She underwent several weeks of IV antibiotics. The most recent followup labs were drawn and clinically the infection appeared to be cleared. We discussed further treatment options including revision total knee arthroplasty. Risks, benefits, complications and alternatives were discussed with the patient in detail and she wished to proceed. DESCRIPTION OF PROCEDURE: The patient was transferred to the operating suite and placed on the operating table in supine position. She was given benefit of general anesthesia. A well-padded pneumatic tourniquet was placed on left upper thigh. Timeout was taken to confirm the appropriate patient identification, operative site and procedure to be performed. All in the room were in agreement with timeout. Procedure began by performing an incision overlying the previous anterior knee incision. The surgical scar was ellipsed out. Dissection was carried down direct to the level of the extensor mechanism. A fresh scalpel blade was then used to perform a medial parapatellar arthrotomy. Electrocautery was then used to perform an extensive synovectomy of the hypertrophic synovium within the knee. Upon entering the knee joint, there was a normal appearing joint effusion without any gross purulence noted. A sample of the synovium was sent for frozen section, which later returned with results of less than 5 PMNs per high power field. The antibiotic spacer was then removed from the femur using an osteotome as well as a bone tamp. An osteotome was then used to remove the tibial antibiotic spacer. The femur and the tibia were then sequentially reamed to there appropriate sizes. The femoral reamer of appropriate size was left in place to allow for intramedullary cutting guide as to allow as an intramedullary cutting guide. The distal femoral cutting block was then pinned into position overlying the guide in the appropriate rotation referencing the transepicondylar axis. Distal femoral cut was then made. The 4-in-1 cutting block was then pinned into place, again using the appropriate rotation based on the transepicondylar axis. Anterior, posterior and chamfer cuts were then performed. Attention was then addressed back to the tibia where appropriate sized tibial reamer was left into position as an intramedullary guide[place] [address] OPERATIVE REPORT Name: YOVANNY ECHAVARRIA ISRAEL Room: [address] IN M.R.#: [id number] Admission: 11/18/19 Attend Phys: Stu Lopez Discharge: Date of : 49 Report #: [id number] cutting block was then pinned into position set to resect a minimal amount of bone. The proximal tibial cut was then freshened up off the tibial cutting block utilizing intramedullary guide. The trial implants were then assembled. The trial tibia was placed into position with 5 mm augments. The trial femoral component was then positioned as well with 5 mm distal augments. The 18 mm spacer block was then checked both in flexion, mid flexion and full extension. The patient was noted to have good stability throughout, which was symmetric. The anterior and posterior drawer tests were stable as well as varus and valgus stress. Trial implants were then removed. The knee was thoroughly irrigated. Cement was mixed on the back table and the final implants were assembled. Cement was then applied to the back surface of the implants as well as the cut surfaces of the bone. Final implants were malleted into position. Cement was allowed to harden. Final 18 mm PS polyethylene was then secured into position. The knee was again taken through range of motion and was found to be stable in full extension, mid flexion and full flexion. The knee was stable to varus and valgus stress as well as anterior and posterior drawer. Vancomycin powder was applied. The knee was thoroughly irrigated again. The capsule was then closed using a combination of #1 Vicryl followed by a #1 running Stratafix. Subcutaneous tissue was closed using 2-0 Vicryl. Final skin closure was performed using a running 3-0 subcuticular Stratafix followed by skin glue. Sterile dressings were applied. The patient was transferred to PACU in stable condition. By: [id number] Abdi DO /judi
[~2019-11-18 06:51] MED LIST: ASA81BEC PO; ATACAND4 MG PO; B COMPLEX1 EACH PO; BENICAR20 MG PO; BLOOD PRESSURE MED; CANDESARTAN PO; CEFAZ1 ADV IV; CYMBALTA20 MG PO; CYMBALTA60 MG PO; ELIQUIS2.5 MG PO; FISH OIL 1,0001 EAC9 PO; FLONASE 0.05%50 MCG NARES; IRON159 MG PO; LEVO-T50 MCG PO; LIPITOR20 MG PO; LOPRESSOR50 MG PO; LORCET 5-325 M1 EACH PO; METFORMIN HCL500 M3 PO; MYLANTA MAXIMU355 ML PO; NORVASC 2.5 MG2.5 M1 PO; OCUVITE TABLET1 EAC1 PO; OMEPRAZOLE 20 M20 M1 PO; OYSTERCAL-D 501 EACH PO; PERCOCET 5-3251 EACH PO; PRADAXA150 MG PO; SERTRALINE HCL100 MG PO; SLEEP AID50 MG PO; SYNTHROID50 MCG PO; TIROSINT88 MCG PO; TYLENOL325 M1 PO; VITAMIN B-121000 MC2 PO; VITAMIN D32000 UNIT PO
[2019-11-18 10:25] VITALS: BP 125/68
[2019-11-18 16:21] VITALS: BP 121/53
[2019-11-18 19:50] VITALS: BP 146/67
[2019-11-19] VITALS: BP 98/45
[2019-11-19 03:37] VITALS: BP 98/54
[2019-11-19 03:53] LABS: HEMATOCRIT 25.7 % (37.0-47.0); HEMOGLOBIN 8.7 gm/dL (12.0-15.0)
[2019-11-19 07:31] VITALS: BP 110/49
[2019-11-19] MEDS ORDERED: TRAMADOL 50 MG50 MG PO (07:58)
[2019-11-19] MEDS ORDERED: OXYCODONE HCL 55 MG PO (07:58)
[2019-11-19] MEDS ORDERED: ELIQUIS5 MG PO (07:58)
[2019-11-19 11:10] VITALS: BP 110/49
[2019-11-19] MEDS ORDERED: LITE COAT ASPI325 MG PO (11:23)
--- NOTE | 2019-11-20 14:07 | PATH ---
[address] [address] PATHOLOGY RPT PROCEDURE Name: YOVANNY ECHAVARRIA Room: [address] Heidi Lewis#: [id number] Admission: 11/18/19 Date of : 49 Discharge: 11/19/19 Report #: [id number] Path Case #: [id number] [facility] Accession Number: [id number] . 01 Material submitted: . knee - LEFT KNEE SYNOVIUM FRESH,FS. Modifiers: left . 01 Clinical history: . Left knee revision . 02 Frozen section diagnosis: . INTRAOPERATIVE CONSULTATION WITH FROZEN SECTION: (Dr. Arthur Morrow) . Soft tissue, left knee synovium: - No obvious acute inflammation identified. . These findings were reported to Dr. Richie Abdi. A written report was placed in the patient's chart. (SHA:[facility]; 11/18/2019) . . FROZEN SECTION GROSS DESCRIPTION: Specimen received fresh, labeled, #1 left knee synovium, consists of fibrofatty tissue aggregating to 2.0 x 1.5 x 0.5 cm. A portion of it is frozen and submitted in cassette labeled A1. ([facility]; 11/18/2019) . . Frozen section performed at [facility], [address] [place] [address]. QSA/QLNiki . 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 - No obvious acute inflammation or abscess identified. (SHA:[facility] 11/20/2019) QTP 11/20/2019 1102 Local . 03 Electronically signed: . Arthur Morrow MD, Pathologist NPI- [id number] . 01 Gross description: . PLEASE SEE FROZEN SECTION GROSS DESCRIPTION /[facility] 11/19/2019 0941 [place] [address] PATHOLOGY RPT PROCEDURE Name: JERICHOYOVANNY ISRAEL Room: [address] Heidi Lewis#: [id number] Admission: 11/18/19 Date of : 49 Discharge: 11/19/19 Report #: [id number] Path Case #: [id number] . 03 Pathologist provided ICD-10: M65.9 . 03 CPT . 473714, 080704 Specimen Comment: A courtesy copy of this report has been sent to [phone] Specimen Comment: [phone], Specimen Comment: Report sent to ,DR CHILDS / DR COVINGTON Performed at: 01 [facility] [address] [id number] MD Moisés Gary MD Phone: [phone] Performed at: 02 [facility] [address] Alessandra Cheng, [place], [place] [id number] MD Joe Gutiérrez MD Phone: [phone] Performed at: 03 [facility] [address] [id number] MD Frederic Connolly MD Phone: [phone]
== END 2019-11-19 11:50 | disposition home or self-care (01) ==
LOC: M.TBA 06:51 → M.PRE 10:17 → M.ORTHSURG 12:51 → M.TBA 12:51 → M.PRE 13:34 → M.ORTHSURG 15:58
PROVIDERS: Orthopaedic Surgery; ADMIT Internal Medicine; ATTEND Internal Medicine
DX: Z03.818 Encounter for observation for suspected exposure to other biological agents ruled out (principal); T84.54XA Infection and inflammatory reaction due to internal left knee prosthesis, initial encounter; M00.9 Pyogenic arthritis, unspecified; I12.9 Hypertensive chronic kidney disease with stage 1 through stage 4 chronic kidney disease, or unspecified chronic kidney disease; N18.3 Chronic kidney disease, stage 3 (moderate); R73.9 Hyperglycemia, unspecified; E03.9 Hypothyroidism, unspecified; I47.1 Supraventricular tachycardia; M17.12 Unilateral primary osteoarthritis, left knee; Y83.8 Other surgical procedures as the cause of abnormal reaction of the patient, or of later complication, without mention of misadventure at the time of the procedure; Y92.89 Other specified places as the place of occurrence of the external cause

== ENCOUNTER → 2020-02-04 | Outpatient (CLI) | payer MEDICARE ==
[~2020-02-04] MED LIST changes: +ELIQUIS5 MG PO; +LITE COAT ASPI325 MG PO; +OXYCODONE HCL 55 MG PO; +TRAMADOL 50 MG50 MG PO
[2020-02-04 09:13] LABS: ABSOLUTE BASOPHILS 0.1 thou/uL (0.0-0.2); ABSOLUTE EOSINOPHILS 0.2 thou/uL (0.0-0.7); ABSOLUTE LYMPHOCYTES 1.4 thou/uL (0.8-5.3); ABSOLUTE MONOCYTES 0.6 thou/uL (0.0-1.2); ABSOLUTE NEUTROPHILS 3.4 thou/uL (1.6-8.1); BASOPHILS 1.8 %; EOSINOPHILS 3.3 %; HEMATOCRIT 35.4 % (37.0-47.0); LYMPHOCYTES 24.3 %; MCH 28.7 pg (26.0-34.0); MCHC 33.9 g/dL (28.0-37.0); MCV 84.7 fL (80.0-100.0); MONOCYTES 10.4 %; MPV 7.1 fl. (7.2-11.1); NUCLEATED RBCS 0 /100WBC; PLATELET COUNT* 287 thou/uL (150-400); POLYS 60.2 %; RBC 4.18 mil/uL (4.20-5.00); RDW-CV 14.3 % (10.5-14.5); WBC 5.7 thou/uL (4.0-11.0)
[2020-02-04 09:21] LABS: APTT 25.3 Seconds (25.0-31.3); PROTIME 10.5 Seconds (9.20-11.50)
[2020-02-04 09:40] LABS: ALBUMIN 3.4 g/dL (3.4-5.0); CALCIUM 8.7 mg/dL (8.5-10.1); CREATININE 1.4 mg/dL (0.6-1.3); POTASSIUM 4.2 mmol/L (3.5-5.1); TOTAL BILIRUBIN 0.3 mg/dL (<0.1-1.0); TOTAL PROTEIN 7.2 g/dL (6.4-8.2)
--- NOTE | 2020-02-04 10:57 | EKG ---
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: : 1945 Requested By: Richie Abdi Order Number: [id number] Reyes MD: Travis Hunter Measurements Intervals [place] Rate: 72 P: 64 NM: 149 QRS: 82 QRSD: 125 T: 66 QT: 406 QTc: 445 Interpretive Statements Sinus rhythm Right bundle branch block Compared to ECG 05/24/2019 11:33:42 Right bundle-branch block now present Electronically Signed On 02-04-2020 10:57:23 CDT by Travis Hunter [email or web address] <ELECTRONICALLY SIGNED> By: Travis Hunter MD, [facility] 02/04/20 1057 5 5 Travis Hunter MD, [facility] /EPI
[2020-02-04 11:08] LABS: ESR (SEDRATE) 71 mm/hr (0-30)
== END ==
LOC: M.LAB 08:41
PROVIDERS: ATTEND Orthopaedic Surgery
DX: Z51.81 Encounter for therapeutic drug level monitoring (principal); Z01.812 Encounter for preprocedural laboratory examination; M17.11 Unilateral primary osteoarthritis, right knee; Z20.828 Contact with and (suspected) exposure to other viral communicable diseases; Z79.01 Long term (current) use of anticoagulants

== ENCOUNTER 2020-02-10 08:37 | Observation (INO) | payer MEDICARE ==
[~2020-02-10] VITALS: Ht 162.6 cm; Wt 65.8 kg
--- NOTE | ~2020-02-10 | OP ---
[facility] [place] [place] [address] OPERATIVE REPORT Name: YOVANNY ECHAVARRIA Room: [address] M.R.#: [id number] Admission: 02/10/20 Attend Phys: Richie Abdi DO Discharge: Date of : 49 Report #: [id number] THIS REPORT FOR: //name// cc: Shonda Hameed MD, Lin W. MD ~ CC: Shonda Abdi DICTATED BY: Davon Power DO DATE OF SERVICE: 02/10/2020 PREOPERATIVE DIAGNOSIS: Advanced degenerative joint disease, right knee. POSTOPERATIVE DIAGNOSIS: Advanced degenerative joint disease, right knee. PROCEDURE PERFORMED: Right total knee arthroplasty using Biomet Vanguard system following components: 1. A size 62.5 mm CR femoral component. 2. Size 71 tibial baseplate. 3. A 14 mm tibial bearing. 4. A 31 mm asymmetric patella. 5. One bag of Biomet bone cement. SURGEON: Richie Abdi DO VISUAL MERCHANDISING COORDINATOR: Teri Connelly PA-C. SECOND VISUAL MERCHANDISING COORDINATOR: Davon Power DO ANESTHESIA: Spinal with nerve block by Anesthesia. ESTIMATED BLOOD LOSS: 200 mL. SPECIMENS: None. COMPLICATIONS: None. DISPOSITION: Stable to PACU. ANTIBIOTICS: 2 g IV Ancef preop. TOURNIQUET: ____ . INDICATIONS FOR SURGERY: The patient is a 74-year-old female who we are followed in clinic for quite some time regarding right knee pain. She has [place] [address] OPERATIVE REPORT Name: YOVANNY ECHAVARRIA Room: [address] M.R.#: [id number] Admission: 02/10/20 Attend Phys: Richie Abdi DO Discharge: Date of : 49 Report #: [id number] advanced DJD on imaging. Her exam is consistent with this and she is lacking range of motion. She has undergone extensive conservative measures. Despite this, she continues to have pain on a daily basis, which interferes with her ADLs. She would like to be more ambulatory and independent; therefore, I recommend she undergo total knee arthroplasty. DESCRIPTION OF PROCEDURE: The patient was seen in the preoperative area. Written consent was obtained. The operative site marked. The patient brought back to the operative suite, placed supine on a well-padded operative table. She was given the benefit of spinal anesthetic. A well-padded pneumatic tourniquet was placed in right proximal thigh. The right lower extremity was then prepped and draped in normal sterile fashion. A surgical timeout was performed. Correct site, side and procedure were verified. All the OR personnel were in agreement. Procedure began with creation of a standard midline incision. Sharp dissection down through skin. A new blade was used to create a standard medial parapatellar arthrotomy. A medial capsular sleeve was created. Anterior horn of the medial and lateral menisci were incised. Patella was everted. Fat pad was excised. The drill was used to localize the femoral canal. The intramedullary guide was used to pin the femoral cutting block into place in 5 degrees of valgus taking a 12 mm cut. Cuts were made in standard fashion. Excess bone was removed. We changed our attention to the tibia. The extramedullary guide was aligned along the tibial crest and the ankle and second ray appears pinned into place, measuring 10 mm off the high lateral side. Cut was made in standard fashion. Excess bone was removed. The spacer block was inserted, which allowed for full extension. We then flexed the knee to maximal flexion. ____ sizer measured a 62.5. The 4-in-1 cutting block was pinned into place, cuts were made in standard fashion. Excess bone was removed. We removed the remainder of the menisci with the Bovie as well as the tissue in the intercondylar notch. The tibia sized to a 71 and this was pinned into place, centered over the medial third of the tibial tubercle. A trial femur was inserted. The spacers were trialed up to a 14, which allowed full flexion, extension and excellent stability. The patella was then denervated and prepped using the Teodoro reamers. It measured to 31. Three peg holes were drilled. The knee was taken through range of motion. Patella tracked well. At this point, all trial components were removed. The lug holes were drilled for the femur. The tibia was prepped in standard fashion with drill followed by the cruciform punch. All bony ends were thoroughly irrigated with pulsatile lavage. Orthopedic cocktail was injected into the posterior capsule as well as the periosteum. The final components were opened. Cement was mixed on the back table. Final components were impacted in standard fashion. Excess cement was removed. A 14 mm poly was trialed, which allowed full flexion, extension and excellent stability. The final 14 mm poly was inserted. The locking bar was engaged in standard fashion. The knee was thoroughly lavaged again and 1 gram of vancomycin powder was spread throughout the surgical site. The knee was brought to 90 degrees of flexion. Capsular tissues closed with #1 Vicryl in [id number]-vw-leoxa fashion, reinforced with a running #1 Stratafix. Wound was [facility] [address] [place] [address] OPERATIVE REPORT Name: YOVANNY ECHAVARRIA Room: [address] NikiSandorDanielleSandor#: [id number] Admission: 02/10/20 Attend Phys: Richie Abdi DO Discharge: Date of : 49 Report #: [id number] again thoroughly irrigated. Subcutaneous tissues were closed with 2-0 Monocryl in a simple inverted interrupted fashion and reinforced with a running 3-0 Stratafix suture. Sterile Dermabond and Mepilex were applied. The patient was awoken from anesthesia and transferred to PACU in stable condition. There were no apparent complications. Needle and sponge counts correct x 2. Dr. Abdi was present for all critical aspects of the case. By: [id number] Abdi DO /nt
[2020-02-10 10:00] VITALS: BP 155/86
[2020-02-10 16:09] VITALS: BP 128/75
--- NOTE | 2020-02-10 16:20 | NUR ---
pt brought to room 118 from surgery. PATIENT A&OX 4, PWD, SITTING UP IN BED ALERT AND TALKING. 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 IS A LITTLE [place]. SL LEFT HAND INTACT AND PATENT. LUNGS CLEAR, HEART TONES REGULAR, +BS X 4 QUADS. PEDAL PULSES PRESENT AND 2+. PT HAS THIGH HIGH TEDS ON RUFINA LEGS. ALSO HAS SCD'S ON RUFINA CALF'S. HAS ON Q PUMP TO RIGHT THIGH WITH QUARTER SIZE BLOOD NOTED ON MORENA HOSE FROM Q PUMP SITE. RIGHT KNEE WITH DERMABOND AND MEPILEX INTACT. NO DRAINAGE NOTED TO DRESSING. DRESSING DRY AND INTACT. ON Q PUMP AT 8MLS/HR PT HAS ANDERS TO ON Q PUMP IN HER HEARING AID BOX. AT BEDSIDE.
--- NOTE | 2020-02-10 17:46 | EKG ---
[place] [address] ELECTROCARDIOGRAM REPORT Name: YOVANNY ECHAVARRIA Room: [address]#: [id number] Admission: 02/10/20 Attend Phys: Omsan Robert Discharge: Date of : 49 Date of Service: 02/10/20 1340 Report #: [id number] THIS REPORT FOR: //name// [facility] Test Date: 2020-02-10 Test Time: 13:40:54 Pat Name: YOVANNY ECHAVARRIA Department: Room: [facility] Gender: F Head Of Measurement & Insights: : 1945 Requested By: Michael Granados Order Number: [id number] Reyes MD: Shawn Chahal Measurements Intervals [place] Rate: 134 P: 0 [place]: QRS: 90 QRSD: 136 T: 6 QT: 356 QTc: 532 Interpretive Statements Supraventricular tachycardia RBBB and LPFB Compared to ECG 02/04/2020 09:16:20 Supraventricular tachycardia now present Electronically Signed On 02-10-2020 17:46:06 CDT by Shawn Chahal [email or web address] <ELECTRONICALLY SIGNED> By: Shawn Chahal MD, FACC 02/10/20 1746 1340 1340 Shawn Chahal MD, [facility] /EPI
[2020-02-10 19:16] VITALS: BP 139/67
[2020-02-11] VITALS: BP 130/57
[2020-02-11 03:42] LABS: HEMOGLOBIN 9.7 gm/dL (12.0-15.0)
[2020-02-11 04:00] VITALS: BP 115/55
--- NOTE | 2020-02-11 06:03 | NUR ---
PT A&OX4, ON ROOM AIR WITH CAPNO IN USE, WBAT TO RLE, ON-Q PUMP NOTED, IV FLUIDS INFUSING ORDERED, NO PAIN REPORTED THIS SHIFT. HOURLY ROUNDINGS COMPLETE, WILL CONTINUE TO MONITOR.
[2020-02-11 07:30] VITALS: BP 133/55
[2020-02-11] MEDS ORDERED: ELIQUIS5 MG PO (10:18)
[2020-02-11 11:30] VITALS: BP 128/55
--- NOTE | 2020-02-11 11:30 | NUR ---
PT.ALERT AND ORIENTED. PLANS TO DISCHARGE TODAY. IS TO HAVE AFTERNOON THERAPY ABOUT 1300. LIVES WITH . HE CAN ASSIST HER NEEDED. JUST HAD OTHER KNEE REPLACED IN OCTOBER. WANTS TO DO OUTPT.THERAPY AGAIN AT [facility]. FAXED DISCHARGE ORDERS,FACE SHEET AND OP REPORT TO [facility] [phone]. SHE HAS A FRONT WHEEL WALKER IN ROOM FROM HOME. CM CALLED IN PRESCRIPTION FOR ELIQUIS WRITTEN TO [facility]. COPAY WAS $21.93 AND PT.INFORMED.
[2020-02-11 13:43] VITALS: BP 128/55
--- NOTE | 2020-02-11 14:27 | NUR ---
PT A&OX 4, PWD. WALKING WELL IN [place] WITH PT. PAIN CONTROLLED WITH PO PAIN MEDICATION. PT KEEPING DIET DOWN WITHOUT NAUSEA AND VOMITING. IV LEFT HAND DC'D WITH CATH CANNULA INTACT. PRESSURE APPLIED UNTIL BLEEDING CEASED AND COTTON BALL AND TAPE APPLIED. PT VERBALIZES UNDERSTANDING TO ALL DISCHARGE INSTRUCTIONS AND MEDICATIONS. SCRIPTS GIVEN TO PT ALONG WITH CARE NOTES. NO C/O AT THIS TIME. DISCHARGED TO HOME VIA W/C AND ACCOMPANIED BY .
--- NOTE | 2020-02-12 09:44 | NUR ---
RECIEVED O.T. EVAL AND TX ORDER. O.T. WILL DEFER TO P.T. SERVICES AT THIS TIME. PLEASE ORDER FURTHER O.T. SERVICES IF NEEDED.
== END 2020-02-11 14:31 | disposition home or self-care (01) ==
LOC: M.PRE → M.TBA 08:37 → M.ORTHSURG 08:37 → M.PRE 10:13 → M.ORTHSURG 16:36
PROVIDERS: Orthopaedic Surgery; ADMIT Internal Medicine; ATTEND Internal Medicine
DX: M17.11 Unilateral primary osteoarthritis, right knee (principal); I12.9 Hypertensive chronic kidney disease with stage 1 through stage 4 chronic kidney disease, or unspecified chronic kidney disease; N18.3 Chronic kidney disease, stage 3 (moderate); E03.9 Hypothyroidism, unspecified; D64.9 Anemia, unspecified; D72.829 Elevated white blood cell count, unspecified; M00.862 Arthritis due to other bacteria, left knee; Z79.899 Other long term (current) drug therapy

== ENCOUNTER → 2020-04-15 | Outpatient (CLI) | payer MEDICARE | LOC: M.RAD 14:25 | PROVIDERS: ATTEND Internal Medicine | DX: N95.9 Unspecified menopausal and perimenopausal disorder (principal) ==